=== PATIENT | male | born 1935 | race African-American/Black ===

== ENCOUNTER 2023-09-19 12:23 | Emergency (ER) | payer OTHER ==
[~2023-09-19] VITALS: Ht 180.3 cm; Wt 80.0 kg
[2023-09-19 12:37] VITALS: O2SAT 98
[2023-09-19] MEDS: TETANUS, DIPHTHERIA, PERTUSSIS VAC/PF 0.5ML (>10YR OLD) IM ONE (13:40)
[2023-09-19] MEDS: LIDOCAINE HCL/PF 1% 10 MG/ML 5ML VIAL INFIL ONE (13:41)
[2023-09-19 16:00] VITALS: BP 144/70; PULSE 80; RESP 19; TEMP 98
== END 2023-09-19 17:23 | disposition home or self-care (01) ==
LOC: ER 12:57
DX: S01.511A Laceration without foreign body of lip, initial encounter (principal); I10 Essential (primary) hypertension; W18.39XA Other fall on same level, initial encounter; Y93.89 Activity, other specified; Y92.89 Other specified places as the place of occurrence of the external cause; Y99.8 Other external cause status
CPT/HCPCS: 99285; 70450; 90715; 12002; 12011; 90471; J3490